=== PATIENT | female | born 1970 | race Caucasian/White ===

== ENCOUNTER 2018-11-13 12:39 | Emergency (ER) | payer OTHER ==
[2018-11-13 12:52] VITALS: BP 121/72; PULSE 84; RESP 16; TEMP 97.6; O2SAT 100
[2018-11-13 12:53] VITALS: BMI 23.0
--- NOTE | 2018-11-13 13:34 | ED PDOC ---
Arrival/HPI - General Chief Complaint: Trauma Time Seen by Provider: 11/13/18 12:40 Historian: Patient - History of Present Illness Narrative History of Present Illness (Text): 11/13/18 13:48 48yr old female presents today with left foot numbness s/p fall. pt states she slipped in the [employer] and injured the left foot/ankle. pt denies hitting her head. pt denies neck or back pain. no abdominal pain. pt denies cp or sob. pt states after the incident she felt a tingling sensation/numbness sensation in the left foot with difficulty moving the toes. pt states she is now able to move the toes, foot and ankle and numbness has resolved. pt denies any pain at present time. 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 - Gastrointestinal Hx Gastrointestinal Disorders: No - Genitourinary/Gynecological Hx Genitourinary Disorders: No - Psychiatric Hx Substance Use: No - Surgical History Hx Section: Yes (x1) Hx Hysterectomy: Yes Other/Comment: Myomectomy x 3 - Anesthesia Hx Anesthesia: Yes Hx Anesthesia Reactions: No Hx Malignant Hyperthermia: No Family/Social History - Physician Review Nursing Documentation Reviewed: Yes Family/Social History: Unknown Family HX Smoking Status: Never Smoked Hx Alcohol Use: No Hx Substance Use: No Allergies/Home Meds Allergies/Adverse Reactions: Allergies No Known Allergies Allergy (Verified 11/13/18 13:31) Home Medications: Home Meds Medication Instructions Recorded Confirmed No Known Home Med 11/13/18 11/13/18 Review of Systems - Review of Systems Constitutional: absent: Fatigue, Fevers Respiratory: absent: SOB, Cough Cardiovascular: absent: Chest Pain, Palpitations Gastrointestinal: absent: Abdominal Pain, Nausea, Vomiting Musculoskeletal: Arthralgias, Other (parasthesias). absent: Back Pain, Neck Pain Skin: absent: Rash, Pruritis Neurological: absent: Headache, Dizziness Psychiatric: absent: Anxiety, Depression Physical Exam Vital Signs Reviewed: Yes Vital Signs Temp Pulse Resp BP Pulse Ox 11/13/18 12:51 97.6 F 84 16 121/72 100 Temperature: Afebrile Blood Pressure: Normal Pulse: Regular Respiratory Rate: Normal Appearance: Positive for: Well-Appearing, Non-Toxic, Comfortable Pain Distress: None Mental Status: Positive for: Alert and Oriented X 3 - Systems Exam Head: Present: Atraumatic Mouth: Present: Moist Mucous Membranes Neck: Present: Normal Range of Motion Respiratory/Chest: Present: Clear to Auscultation, Good Air Exchange. No: Respiratory Distress, Accessory Muscle Use Cardiovascular: Present: Regular Rate and Rhythm, Normal S1, S2. No: Murmurs Abdomen: No: Tenderness, Distention, Rebound, Guarding Back: No: Midline Tenderness, Paraspinal Tenderness Upper Extremity: Present: Normal ROM Lower Extremity: Present: Normal Inspection, NORMAL PULSES, Normal ROM, Neurovascularly Intact, Capillary Refill < 2 s. No: CALF TENDERNESS, Tenderness, Swelling, Erythema, Deformity, Temperature Abnormalties Neurological: Present: GCS=15, Speech Normal Skin: Present: Warm, Dry, Normal Color. No: Rashes Psychiatric: Present: Alert, Oriented x 3 Medical Decision Making ED Course and Treatment: 11/13/18 13:55 pt c/o left foot numbness s/p slip and fall. sensation and distal pulses intact; no tenderness. full rom of ankle and foot on left. cap refill <2. pt states she doesnt have any pain and doesn't need any medications xrays of left foot; no fracture xrays of left ankle; no fracture 11/13/18 14:34 i was notifed by RELATIONSHIP COUNSELOR that pt walked out of ER. xray results were not discussed with the patient. PT eloped; left ER without completion of treatment. Impression: foot pain, parasthesias PT ELOPED Left without completion of treatment. - RAD Interpretation Radiology Orders: 11/13/18 13:33 ANKLE LEFT 3 VIEWS ROUTINE [RAD] Stat FOOT LEFT 3 VIEWS ROUTINE [RAD] Stat Disposition/Present on Arrival - Present on Arrival Any Indicators Present on Arrival: No History of DVT/PE: No History of Uncontrolled Diabetes: No Urinary Catheter: No History of Decub. Ulcer: No History Surgical Site Infection Following: None - Disposition Have Diagnosis and Disposition been Completed?: Yes Diagnosis: Foot pain, Leg paresthesia, Eloped from emergency department Disposition: ELOPEMENT - ER ONLY Disposition Time: 14:34 Patient Plan: Other (eloped) Condition: UNKNOWN Forms: [employer] (Thai)
--- NOTE | 2018-11-13 14:35 | RAD ---
Date of service: 11/13/2018 PROCEDURE: Left Foot Radiographs. HISTORY: foot pain COMPARISON: None. TECHNIQUE: AP, oblique and lateral views were obtained. FINDINGS: BONES: Bone alignment and mineralization are normal. There is no acute displaced fracture or bone destruction. There is an os trigonum. JOINTS: Normal. SOFT TISSUES: Normal. OTHER FINDINGS: None. IMPRESSION: No acute fracture or dislocation s.
--- NOTE | 2018-11-13 14:38 | RAD ---
Date of service: 11/13/2018 PROCEDURE: Left Ankle Radiographs. HISTORY: ankle pain COMPARISON: None available. TECHNIQUE: 3 views obtained. FINDINGS: BONES: Bone alignment and mineralization are normal. There is no acute displaced fracture or bone destruction. JOINTS: Normal. No osteoarthritis. Ankle mortise maintained. Talar dome intact SOFT TISSUES: Normal. OTHER FINDINGS: None. IMPRESSION: No acute fracture or dislocation.
== END 2018-11-13 14:32 | disposition left against medical advice (07) ==
LOC: ED 12:39
DX: M79.672 Pain in left foot (principal); R20.2 Paresthesia of skin